=== PATIENT | male | born 1965 | race Hispanic/Latino ===

== ENCOUNTER 2020-07-17 11:52 | Outpatient (CLI) | payer OTHER, BC ==
--- NOTE | 2020-07-17 15:27 | MRI ---
MRI OF CERVICAL SPINE WITHOUT CONTRAST: INDICATION: Cervical radiculopathy. FINDINGS: Cervical vertebrae maintain height and alignment. Disk spaces are preserved. Vertebral body signal appears normal. No edema. There are mild to moderate degenerative changes with spurring seen from t he anterior cervical vertebrae. C2-3: No significant disk bulge or spondylosis. There is evidence of facet hypertrophy on the left which appears to encroach into the left foramina o n axial images. This appears to result in left foraminal stenosis at the C2-3 level. C3-4: Mild posterior disk bulge and spondylosis efface the anterior subarachnoid space. These ledezma es abut the anterior cord without significant cord compression. Facet and uncinate hypertrophy is pr esent, and there is mild bilateral foraminal stenosis. C4-5: Mild disk bulge and spondylosis abut and mildly compress the anterior cord. Mild facet hypert rophy without significant foraminal stenosis. At C5-6: Mild disk bulge and spondylosis efface the anterior subarachnoid space. No significant cor d impingement. There is left foraminal stenosis due to uncinate hypertrophy. At C6-7: Broad-based disk bulge with spondylitic changes compress the anterior cord producing mild f lattening and indentation of the anterior cord. Bilateral uncinate hypertrophy results in foraminal narrowing bilaterally. C7-T1: Mild disk bulge flattens the thecal sac. The anterior subarachnoid space is preserved. Cord signal is normally maintained. IMPRESSION: Posterior disk bulge and spondylosis is seen at multiple levels. The findings are pronounced at C6-7 with mild cord compression. There is foraminal stenosis at numerous levels which could be better as sessed with CT scan as clinically indicated. POS: OFF
== END 2020-07-17 11:53 | disposition home or self-care (01) ==
LOC: BICMRI 11:52
PROVIDERS: ATTEND Specialist
DX: M47.22 Other spondylosis with radiculopathy, cervical region (principal); M50.11 Cervical disc disorder with radiculopathy, high cervical region; M51.15 Intervertebral disc disorders with radiculopathy, thoracolumbar region; M48.02 Spinal stenosis, cervical region
CPT/HCPCS: 72141